=== PATIENT | male | born 1940 | race Hispanic/Latino ===

== ENCOUNTER 2018-11-13 08:50 | Day surgery (SDC) | payer MEDICARE ==
[2018-11-13] MEDS ORDERED: ZOFRAN IV PRN (09:19)
[2018-11-13] MEDS ORDERED: SUBLIMAZE IV PRN (09:19)
--- NOTE | 2018-11-13 09:20 | Anesthesia Day of Surgery ---
Anesthesia Day of Surgery - Day of Surgery Patient Examined: Yes Patient H&P Reviewed: Yes Patient is NPO: Yes
--- NOTE | 2018-11-13 09:26 | Anesthesia Consultation ---
Anesthesia Consult and Med Hx Date of service: 11/13/18 - Airway Anesthetic Teeth Evaluation: Good ROM Head & Neck: Adequate Mental/Hyoid Distance: Adequate Mallampati Class: Class III Intubation Access Assessment: Probably Good - Pre-Operative Health Status ASA Pre-Surgery Classification: ASA2 Proposed Anesthetic Plan: General - Pulmonary Hx Sleep Apnea: No - Cardiovascular System Hx Hypertension: Yes Hx Cardia Arrhythmia: Yes (Can climb two flights of stairs) Hx Valvular Heart Disease: Yes (Misformed valve x 30 years. Asymptomatic)
[2018-11-13] MEDS ORDERED: LACTATED RINGERS 1,000 ML IV SCH (10:00)
[2018-11-13] MEDS ORDERED: ANCEF/STERILE WATER 2 GM/20 ML 2 GM/20 ML SYRINGE IV NR (10:00)
[2018-11-13] MEDS ORDERED: SUBLIMAZE ONE (10:20)
[2018-11-13] MEDS ORDERED: DIPRIVAN 10 MG/ML IV ONE (10:20)
[2018-11-13] MEDS ORDERED: XYLOCAINE MPF 2% ONE (10:44)
[2018-11-13] MEDS ORDERED: MARCAINE 0.25% INFILTRATI ONE ×3 (11:00→11:23)
[2018-11-13] MEDS ORDERED: ZOFRAN ONE (11:17)
[2018-11-13] MEDS ORDERED: WATER FOR IRRIG STERILE IR ONE (11:20)
[2018-11-13] MEDS ORDERED: NACL 0.9% IR ONE (11:23)
--- NOTE | 2018-11-13 13:48 | Post Operative Note ---
Date of procedure: 11/13/18 Pre-op diagnosis: penile mass Post-op diagnosis: same Findings: large mass Procedure: cysto partial penectomy Anesthesia: GETA Surgeon: FANTA BEASLEY Estimated blood loss: minimal Pathology: list (penis) Specimen disposition: to lab Condition: stable Disposition: PACU
--- NOTE | 2018-11-13 13:49 | Discharge Summary ---
Short Stay Discharge Plan Activity: other (no straining or sex ) Weight Bearing Status: Full Weight Bearing Diet: low fat, low cholesterol, low salt Wound: open to air Special Instructions: other (teach cath care ) Durable Medical Equipment Needed Upon Discharge: other (khalil ) Follow up with: DOC MENDES MD [Primary Care Provider] - 7 Days FANTA BEASLEY MD [Staff Physician] - 3 Days
[2018-11-13] MEDS ORDERED: PERCOCET 5/325 PO ONE (14:00)
--- NOTE | 2018-11-13 14:09 | Operative Report ---
PREOPERATIVE DIAGNOSIS: Hardened penile mass involving the glans and foreskin. POSTOPERATIVE DIAGNOSES: Hardened penile mass involving the glans and foreskin. PROCEDURE: Circumcision with a flexible cystoscopy, excision of partial penectomy of the glans. SURGEON: Gopal Alfonso MD. ANESTHESIA: General. FINDINGS: This is a gentleman who presented with a bloody discharge from underneath the foreskin with a palpable mass. He now presents for treatment. DESCRIPTION OF PROCEDURE: The patient was brought to the operating room and placed on the operating table. Following induction of anesthesia, he was placed in the supine position, prepped and draped in usual sterile fashion. At this point, using a marking pencil, the proximal penile skin without the tumor was marked. We made a circumferential incision and we took a little bit of an inner foreskin, but not compromising based on the tumor. This tumor was looked to be deep and solid. Large amount of skin was removed and this was reconstructed. I suspect he will need a distal penectomy. The partial penectomy was along the glans and we had to use Surgicel pledgets to oversew the glans. We did not want to remove the whole gland at this point. Let's see what the final pathology showed. 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 Flexible cystoscopy showed no urethral invasion and bladder was clean. Mayers was left. The patient tolerated the procedure well and brought to recovery in stable condition. JOB# [id number] NITESH/KRUNAL
--- NOTE | 2018-11-13 20:29 | Post Anesthesia Evaluation ---
- Post Anesthesia Evaluation Patient Participated: Yes Airway Patent: Yes Stable Respiratory Function: Yes Nausea/Vomiting: No Temp > 96.8F: Yes Pain Manageable: Yes Adequeate Hydration: Yes Anesthesia Complications: No Block Receding Appropriately: Not Applicable Patient on Ventilator: No
[2018-11-13 20:34] VITALS: BP 132/68
== END 2018-11-13 08:51 | disposition home or self-care (01) ==
LOC: OR 08:50
PROVIDERS: ATTEND Urology
DX: C60.1 Malignant neoplasm of glans penis (principal); I42.9 Cardiomyopathy, unspecified; E78.00 Pure hypercholesterolemia, unspecified; I10 Essential (primary) hypertension; Z79.899 Other long term (current) drug therapy; Z79.82 Long term (current) use of aspirin
CPT/HCPCS: 54120; 54161; 88305; 88331; 88341; 88342; A4217; J0690; J2405; J2704; J3010; J7120; 88304

== ENCOUNTER 2018-12-14 11:52 | Observation (INO) | payer MEDICARE ==
[2018-12-14] MEDS ORDERED: DILAUDID IV PRN (14:12)
--- NOTE | 2018-12-14 14:12 | Anesthesia Consultation ---
Anesthesia Consult and Med Hx Date of service: 12/14/18 - Airway Anesthetic Teeth Evaluation: Good ROM Head & Neck: Adequate Mental/Hyoid Distance: Adequate Mallampati Class: Class III Intubation Access Assessment: Probably Good (previous easy LMA 4) - Pulmonary Exam CTA: Yes - Cardiac Exam Cardiac Exam: RRR (occasional ectopic beat, grade II systolic murmur) - Pre-Operative Health Status ASA Pre-Surgery Classification: ASA3 Proposed Anesthetic Plan: General - Pulmonary Hx Smoking: No Hx Respiratory Symptoms: No Hx Sleep Apnea: No (KEARA PRE SCREEN HIGH RISK) - Cardiovascular System Hx Hypertension: Yes Hx Heart Attack/AMI: No (>4 mets functional capacity) Hx Angina: No Hx Cardia Arrhythmia: Yes (occasional ectopic beat) Hx Pacemaker: No Hx Internal Defibrillator: No Hx Valvular Heart Disease: Yes ("floppy" valve; not sure which valce but followed by PCP. 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
--- NOTE | 2018-12-14 14:12 | Anesthesia Day of Surgery ---
Anesthesia Day of Surgery - Day of Surgery Patient Examined: Yes Patient H&P Reviewed: Yes Patient is NPO: Yes
[2018-12-14] MEDS: LACTATED RINGERS 1,000 ML IV SCH (14:45)
[2018-12-14] MEDS ORDERED: XYLOCAINE MPF 2% ONE (15:35)
[2018-12-14] MEDS ORDERED: ZOFRAN ONE (15:35)
[2018-12-14] MEDS ORDERED: SUBLIMAZE ONE ×2 (15:35→17:30)
[2018-12-14] MEDS ORDERED: DECADRON ONE (15:35)
[2018-12-14] MEDS ORDERED: ROBINUL ONE (15:35)
[2018-12-14] MEDS ORDERED: DIPRIVAN 10 MG/ML IV ONE (15:36)
[2018-12-14] MEDS ORDERED: ANCEF/STERILE WATER 2 GM/20 ML IV NR (17:00)
[2018-12-14] MEDS ORDERED: ZOFRAN ODT PO PRN (17:07)
[2018-12-14] MEDS ORDERED: MORPHINE IV PRN (17:07)
[2018-12-14] MEDS ORDERED: NARCAN 0.4 MG/1 ML IV PRN (17:07)
[2018-12-14] MEDS ORDERED: TYLENOL PO PRN (17:07)
[2018-12-14] MEDS ORDERED: NORCO 5/325 PO PRN (17:07)
--- NOTE | 2018-12-14 17:07 | Post Operative Note ---
Date of procedure: 12/14/18 Pre-op diagnosis: penil;e cancer Post-op diagnosis: same Findings: mass glans extending to skin Procedure: partial penectomy Anesthesia: GETA Surgeon: FANTA BEASLEY Estimated blood loss: 50-100ml Pathology: list (penis) Specimen disposition: to lab Condition: stable Disposition: PACU
[2018-12-14] MEDS ORDERED: AMBIEN PO PRN (17:12)
[2018-12-14] MEDS ORDERED: QUELICIN ONE (17:26)
[2018-12-14] MEDS ORDERED: PHENYLEPHRINE/NS Syringe 1,000 MCG/10 ML IV ONE (17:44)
[2018-12-14] MEDS ORDERED: D5W/0.45% NACL/KCL 20 MEQ 20 MEQ/1,000 ML BAG IV SCH (18:00)
[2018-12-14] MEDS ORDERED: LACTATED RINGERS 1,000 ML ONE (19:28)
[2018-12-14] MEDS ORDERED: DILAUDID ONE (19:45)
--- NOTE | 2018-12-14 21:39 | Operative Report ---
PREOPERATIVE DIAGNOSIS: Cancer of the penis. POSTOPERATIVE DIAGNOSIS: Cancer of the penis. PROCEDURE: Partial penectomy. SURGEON: Gopal Alfonso MD ANESTHESIA: General. 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 We took off as much as we could, not find the symptoms of possible Mohs surgery. It was recommended to undergo penectomy. All the options were discussed. DESCRIPTION OF PROCEDURE: The patient was brought to the operating room and placed on the operating table. Following the induction of anesthesia, placed in the supine position, prepped and draped in usual sterile fashion. An area was marked with a marking pencil. Mayers catheter was placed. The skin was incised and very thickened edematous fascia was incised. It was oversewn and tied with a 2-0 and 3-0 Vicryl. At this point, we carried this down to the corpora. Tourniquet was placed. The corpora were divided to the spongiosum. These were oversewn with multiple suture ligatures of 0 Vicryl. Hemostasis was excellent. The catheter was in the urethra. The spongiosum was undermined and divided. Specimen was sent to pathology. Catheter was removed and at this point, reconstruction was carried out. Any small vessels were tied. Reconstruction was carried out with 3-0 and 4-0 chromic. A small Brant drain was placed. Mayers catheter #18 was placed and in good position. The urethral meatus was reapproximated and recreated and reconstructed. He tolerated the procedure well. Estimated blood loss was 50 mL. He was brought to recovery room with a Coban dressing, Mayers catheter, in stable condition. JOB# [id number] NITESH/KRUNAL
[2018-12-15] MEDS: ANCEF/NS 1 GM/50 ML 1 GM/50 ML BAG IV SCH ×2 (02:03→02:04)
[2018-12-15] MEDS: LACTATED RINGERS 1,000 ML IV SCH (05:44)
[2018-12-15 11:57] VITALS: BP 110/55
--- NOTE | 2018-12-15 12:32 | Short Stay Summary ---
Short Stay Documentation Date of service: 12/14/18 - History H&P: obtained from office - Allergies and Medications Current Medications: Allergies No Known Allergies Allergy (Verified 12/05/18 17:10) Home Medications Medication Instructions Recorded Confirmed Last Taken Type Aspirin [Adult Aspirin] 81 mg PO DAILY 11/13/18 12/14/18 12/08/18 08:00 History Atorvastatin 20 mg PO QHS 11/13/18 12/14/18 12/13/18 08:00 History Meclizine [Antivert] 25 mg PO TID PRN 11/13/18 12/14/18 11/27/18 10:00 History hydroCHLOROthiazide [HCTZ] 25 mg PO QDAY 12/05/18 12/14/18 12/13/18 08:00 History Active Medications Acetaminophen (Tylenol) 650 mg PO Q4H PRN PRN Reason: Pain MILD(1-3)/Fever >100.5/READ Acetaminophen/Hydrocodone Bitart ([place] 5/325) 2 each PO Q6H PRN PRN Reason: Pain, Moderate (4-6) Lactated Ringer's (Lactated Ringers) 1,000 mls @ 100 mls/hr IV DIRECT BHAVIK Last Admin: 12/15/18 05:44 Dose: 100 mls/hr Documented by: Potassium Chloride/Dextrose/Sod Cl (D5w/0.45% Nacl/Kcl 20 Meq) 20 meq in 1,000 mls @ 125 mls/hr IV DIRECT BHAVIK Cefazolin Sodium (Ancef/Ns 1 Gm/50 Ml) 1 gm in 50 mls @ 100 mls/hr IV Q8H BHAVIK; Protocol Stop: 12/15/18 18:29 Last Admin: 12/15/18 02:04 Dose: 100 mls/hr Documented by: Morphine Sulfate (Morphine) 2 mg IV Q4H PRN PRN Reason: Pain, Moderate (4-6) Last Admin: 12/15/18 05:50 Dose: 2 mg Documented by: Naloxone HCl (Narcan 0.4 Mg/1 Ml) 0.1 mg IV Q2MIN PRN PRN Reason: Res Rate </= 8 or 02 SAT < 92% Ondansetron HCl (Zofran Odt) 4 mg PO Q8H PRN PRN Reason: Nausea And Vomiting Zolpidem Tartrate (Ambien) 10 mg PO QHS PRN PRN Reason: Insomnia - Brief post op/procedure progress note Date of procedure: 12/15/18 Pre-op diagnosis: penile mass Post-op diagnosis: same Procedure: partial penectomy Anesthesia: ANDRE Surgeon: FANTA BEASLEY Estimated blood loss: minimal Pathology: list (penis) Specimen disposition: to lab Condition: stable - Hospital course Hospital course: no issues johanna removed khalil clear incision clean nurse at bedside pt has scripts - Disposition Condition at discharge: Stable Disposition: DC-01 TO HOME OR SELFCARE Short Stay Discharge Plan Follow up with: DOC MENDES MD [Primary Care Provider] - 7 Days
== END 2018-12-15 14:30 | disposition home or self-care (01) ==
LOC: OR 11:52 → 2B-ACE 17:07 → 3B-SURG 19:30
PROVIDERS: ADMIT Urology; ATTEND Urology
DX: C60.9 Malignant neoplasm of penis, unspecified (principal)
CPT/HCPCS: 54120; 82803; 88309; 94760; 96365; 96375; G0378; J0330; J0690; J1100; J1170; J2270; J2370; J2405; J2704; J3010; J7120